=== PATIENT | male | born 1950 | race Caucasian/White ===

== ENCOUNTER 2025-03-28 12:44 | Outpatient (REF) | payer MEDICARE, SELFPAY ==
[2025-03-28 13:13] LABS: Hematocrit 27.3 % (42.0-54.0); Hemoglobin 7.9 g/dL (14.0-18.0)
== END 2025-03-28 12:45 | disposition home or self-care (01) ==
LOC: LAB 12:44
PROVIDERS: PCP Family Medicine; Visit Provider Nurse Practitioner Family
DX: D64.9 Anemia, unspecified (principal)
CPT/HCPCS: 36415; 85014; 85018